=== PATIENT | male | born 1945 | race Caucasian/White ===

== ENCOUNTER 2019-05-13 07:32 | Emergency (ER) | payer MEDICARE, BC ==
[2019-05-13] MEDS ORDERED: Sodium Chloride 0.9% 10 ML Syringe FLUSH PRN (07:55)
[2019-05-13] MEDS ORDERED: Etomidate 2 MG/ML 10 ML SDV ONE (08:00)
[2019-05-13] MEDS ORDERED: Sodium Bicarbonate 8.4% 50 MEQ/50 ML Syringe ONE (08:00)
[2019-05-13] MEDS ORDERED: Midazolam 1 MG/ML 2 ML SDV ONE ×2 (08:00→09:06)
[2019-05-13] MEDS ORDERED: Succinylcholine 200 MG/10 ML MDV ONE ×2 (08:00→08:30)
[2019-05-13] MEDS ORDERED: Rocuronium 50 MG/5 ML Vial ONE ×2 (08:00→08:30)
[2019-05-13] MEDS ORDERED: SODIUM CHLORIDE 0.9% IV ONE (08:05)
[2019-05-13] MEDS ORDERED: PHENYTOIN IV ONE (08:05)
[2019-05-13] MEDS ORDERED: Sodium Chloride 0.9% 1,000 ML IV ONE (08:15)
--- NOTE | 2019-05-13 08:15 | CT ---
[id number] CT/CT Head Stroke Protocol EXAM: CT Head Stroke Protocol CLINICAL DATA: STROKE COMPARISON STUDY: 03/27/2018. FINDINGS: No intracranial hemorrhage, extra-axial fluid collection, mass, or acute ischemia. Generalized parenchymal atrophy with scattered areas of nonspecific white matter disease, commonly seen as sequela of chronic microvascular ischemia. Soft tissues are unremarkable. Paranasal sinuses and mastoid air cells are clear. IMPRESSION: No acute intracranial findings. Fidencio Rangel DO 05/13/19 0814 Thank you for allowing us to participate in the care of your patient.
[2019-05-13 08:25] LABS: BARBITURATE SCREEN,URINE NEGATIVE (NEGATIVE); BENZODIAZEPINES SCREEN,URINE NEGATIVE (NEGATIVE); EDDP,URINE SCREEN NEGATIVE (NEGATIVE); METHAMPHETAMINE SCREEN, URINE NEGATIVE (NEGATIVE); TCA SCREEN,URINE NEGATIVE (NEGATIVE); THC SCREEN,URINE 50 NG/ML NEGATIVE (NEGATIVE)
[2019-05-13] MEDS ORDERED: Etomidate 2 MG/ML 10 ML SDV IVPUSH ONE (08:30)
[2019-05-13] MEDS ORDERED: Succinylcholine 200 MG/10 ML MDV IV ONE (08:30)
[2019-05-13 08:33] LABS: CHLORIDE,CL 100 mmol/L (98-107); SODIUM,NA 143 mmol/L (136-145)
[2019-05-13] MEDS ORDERED: Rocuronium 50 MG/5 ML Vial IV ONE (08:40)
[2019-05-13] MEDS ORDERED: Sodium Bicarbonate 8.4% 50 MEQ/50 ML Syringe IVPUSH ONE ×2 (08:45→08:46)
[2019-05-13 08:47] LABS: ACETAMINOPHEN 0 ug/ml (10-30)
[2019-05-13] MEDS ORDERED: Sodium Bicarbonate 50 MEQ in Sodium Chloride 0.9% 1,000 ML IV ONE ×4 (08:55)
[2019-05-13] MEDS ORDERED: Midazolam 1 MG/ML 2 ML SDV IVPUSH ONE (09:05)
--- NOTE | 2019-05-13 09:15 | CR ---
[id number] RAD/RAD Chest PA or AP 1V EXAM: RAD Chest PA or AP 1V INDICATION: POST INTUBATION COMPARISON: None. DISCUSSION: Endotracheal tube projects over the superior trachea at the level of the clavicle heads. No visible pneumothorax. Lungs appear clear. Marked gaseous distention of bowel loops in the upper abdomen, partially visualized and nonspecific in etiology. Additionally, there is an abnormal appearance of the left hemidiaphragm. Findings are possibly secondary to chronic marked gaseous distention of the colon which was seen on a CT from March 27, 2018. If there is abdominal pain or suspicion for abdominal pathology, CT of the abdomen/pelvis with intravenous contrast is recommended for further evaluation. IMPRESSION: Endotracheal tube has been placed with tip in the superior trachea at the level of the clavicle heads. Chest is otherwise unremarkable. Upper abdomen as described above with recommendations, as clinically warranted. Results relayed to Dr. Vidal at time of dictation. Ashvin Ron MD 05/13/19 0914 Thank you for allowing us to participate in the care of your patient.
--- NOTE | 2019-05-13 09:27 | EDM.PDOC ---
ED HPI GENERAL MEDICAL PROBLEM - General Chief Complaint: Abdominal Pain Stated Complaint: STROKE Time Seen by Provider: 05/13/19 07:38 Source of Information: Reports: EMS, Family History Limitations: Reports: Altered Mental Status - History of Present Illness INITIAL COMMENTS - FREE TEXT/NARRATIVE: Pt presents unresponsive by ems. Last known well time Last evening 05/12/19, did hear pt moving around about [id number]. Found pt unresponsive and called 911. Pt with hx of HTN, anxiety, hyperlipidemia. Pt with one seizure enroute, did have another seizure upon arrival. Onset: Today - Related Data Allergies Allergy/AdvReac Type Severity Reaction Status Date / Time No Known Drug Allergies Allergy Other Verified 05/08/14 17:10 Home Meds: Home Meds . [Unable to Verify Home Med List] 03/21/14 [History] ED ROS GENERAL - Review of Systems Review Of Systems: Unable To Obtain (Pt unresponsive upon arrival) - Physical Exam Exam: See Below Text/Narrative:: Pt presents unresponsive by ems. On O2 15 lpm via NRB, IV inplace, PT with one seizure enroute, upon arrival pt with seizure given valium 5 mg IVP, Pt taken to Ct with RN in attendance. PT to trauma room post scan. IV, forde, ekg in place, no ectopy noted on ekg, pt with ST labs obtained, Pt unable to protect his airway, decision was made to RSI pt, vitals take / preoxygenate pt, pt given etomidate and succinylcholine, 7.5 ett placed w/o difficulty 24 cm at the lip. et co2 at 50 with 100% spo2, LS in all vargas with no epigastric sounds, equil chest rise, post intubation x ray taken, noted in trach. PH at 7.1 pt started on bicarb drip, discussed with [facility] pt transfored to [place] [facility] for further evaluation and treatment Dr. Cortez accepting. Exam Limited By: Altered Mental Status General Appearance: Other (unresponsive ) Throat/Mouth: Normal Lips, Normal Oropharynx Head Exam: Atraumatic, Normocephalic Neck: Normal Inspection, Supple Respiratory/Chest: No Respiratory Distress, Normal Breath Sounds Cardiovascular: Tachycardia GI/Abdominal: Normal Bowel Sounds Course - Orders/Labs/Meds Orders: Active Orders 24 hr Category Date Time Status Forde Catheter Insertion [Insert Urinary Catheter] [OM. Care 05/13/19 08:00 Ordered PC] Q24H Supplemental O2 [Oxygen Therapy, ED] [RC] ASDIRECTED Care 05/13/19 07:59 Active Urinary Catheter Assessment [RC] ASDIRECTED Care 05/13/19 07:56 Active LACTIC ACID [CHEM] Stat Lab 05/13/19 08:59 Ordered Sodium Bicarbonate [Sodium Bicarbonate 8.4%] 50 meq Med 05/13/19 08:55 Active Sodium Chloride 0.9% [Normal Saline] 1,000 ml IV ONETIME Sodium Chloride 0.9% [Saline Flush] Med 05/13/19 07:55 Active 10 ml FLUSH ASDIRECTED PRN Peripheral IV Insertion Adult [OM.PC] Routine Oth 05/13/19 07:55 Ordered Medication Orders Sodium Bicarbonate 50 meq/ (Sodium Chloride) 1,050 mls @ 999 mls/hr IV ONETIME ONE Stop: 05/13/19 09:58 Sodium Chloride (Saline Flush) 10 ml FLUSH ASDIRECTED PRN PRN Reason: Keep Vein Open Labs: Laboratory Tests 05/13/19 05/13/19 05/13/19 Range/Units 07:56 07:56 08:05 WBC 10.6 H (4.0-10.0) x10^3/uL RBC 5.38 (4.5-6.0) x10^6/uL Hgb 17.0 D (14.0-18.0) g/dL Hct 50.5 (40.0-52.0) % MCV 93.9 H (78.0-93.0) fL MCH 31.6 (26.0-32.0) pg MCHC 33.7 (32.0-36.0) g/dL RDW Coeff of Walter 15.8 H (10.0-15.0) % Plt Count 176 (130-400) x10^3/uL Add Manual Diff Yes Neutrophils % (Manual) 62 (50-80) % Band Neutrophils % 2 (0-6) % Lymphocytes % (Manual) 27 (25-50) % Monocytes % (Manual) 6 (2-11) % Eosinophils % (Manual) 1 (0-4) % Metamyelocytes % 2 H (0) % Platelet Estimate Adequate Giant Platelets Few H POC ABG pH (7.35-7.45) POC ABG pCO2 (35-45) mmHG POC ABG pO2 (80-105) mmHG POC ABG HCO3 (22-26) mmol/L POC ABG Total CO2 (23-27) mmol/L POC ABG O2 Sat (95-98) % POC ABG Base Excess (-2-3) mmol/L POC FiO2 Sodium 143 (136-145) mmol/L Potassium 4.0 (3.5-5.1) mmol/L Chloride 100 (98-107) mmol/L Carbon Dioxide 29 (21-32) mmol/L Anion Gap 18.0 (10-20) mmol/L BUN 12 (7-18) mg/dL Creatinine 1.1 (0.70-1.30) mg/dL Est Cr Clr Drug Dosing TNP Estimated GFR (MDRD) > 60 Glucose 186 H (74-106) mg/dL Calcium 10.0 D (8.5-10.1) mg/dL Corrected Calcium 10.16 H (8.5-10.1) mg/dL Total Bilirubin 1.2 H (0.2-1.0) mg/dL AST 23 (15-37) U/L ALT 13 L (16-63) U/L Alkaline Phosphatase 77 (46-116) U/L Troponin I < 0.017 (<=0.056) ng/mL Total Protein 7.1 (6.4-8.2) g/dL Albumin 3.8 (3.4-5.0) g/dL Globulin 3.3 Albumin/Globulin Ratio 1.15 POC Result Comm Urine Color Dark yellow H (YELLOW) Urine Appearance Slightly cloudy H (CLEAR) Urine pH 5.5 (5.0-8.0) Ur Specific [place] 1.020 Urine Protein 30 H (NEGATIVE) mg/dL Urine Glucose (UA) Negative (NEGATIVE) mg/dL Urine Ketones Negative (NEGATIVE) mg/dL Urine Occult Blood Negative (NEGATIVE) Urine Nitrite Negative (NEGATIVE) Urine Bilirubin Moderate H (NEGATIVE) Urine Urobilinogen 2.0 H (0.2) EU/dL Ur Leukocyte Esterase Negative (NEGATIVE) Urine RBC 0-5 (NOT SEEN) /HPF Urine WBC 0-5 (NOT SEEN) /HPF Ur Squamous Epith Cells Rare (NEGATIVE) /HPF Amorphous Sediment Occasional Urine Bacteria Not seen (NEGATIVE) /HPF Urine Mucus Few H (NEGATIVE) /LPF Urine Opiates Screen (NEAGTIVE) Ur Buprenorphine Scrn (NEGATIVE) Ur Oxycodone Screen (NEGATIVE) Ur EDDP (Meth Metab) (NEGATIVE) Urine Methadone Screen (NEGATIVE) Acetaminophen 0 L (10-30) ug/ml Ur Barbiturates Screen (NEGATIVE) Ur Tricyclics Screen (NEGATIVE) Ur Phencyclidine Scrn (NEGATIVE) Ur Amphetamine Screen (NEGATIVE) U Methamphetamines Scrn (NEGATIVE) Urine MDMA Screen (NEGATIVE) U Benzodiazepines Scrn (NEGATIVE) U Cocaine Metab Screen (NEGATIVE) U Marijuana (THC) Screen (NEGATIVE) 05/13/19 05/13/19 Range/Units 08:05 08:11 WBC (4.0-10.0) x10^3/uL RBC (4.5-6.0) x10^6/uL Hgb (14.0-18.0) g/dL Hct (40.0-52.0) % MCV (78.0-93.0) fL MCH (26.0-32.0) pg MCHC (32.0-36.0) g/dL RDW Coeff of Walter (10.0-15.0) % Plt Count (130-400) x10^3/uL Add Manual Diff Neutrophils % (Manual) (50-80) % Band Neutrophils % (0-6) % Lymphocytes % (Manual) (25-50) % Monocytes % (Manual) (2-11) % Eosinophils % (Manual) (0-4) % Metamyelocytes % (0) % Platelet Estimate Giant Platelets POC ABG pH 7.114 L* (7.35-7.45) POC ABG pCO2 96 H* (35-45) mmHG POC ABG pO2 166 H (80-105) mmHG POC ABG HCO3 31 H (22-26) mmol/L POC ABG Total CO2 34 H (23-27) mmol/L POC ABG O2 Sat 99 H (95-98) % POC ABG Base Excess 1 (-2-3) mmol/L POC FiO2 0.80 Sodium (136-145) mmol/L Potassium (3.5-5.1) mmol/L Chloride (98-107) mmol/L Carbon Dioxide (21-32) mmol/L Anion Gap (10-20) mmol/L BUN (7-18) mg/dL Creatinine (0.70-1.30) mg/dL Est Cr Clr Drug Dosing Estimated GFR (MDRD) Glucose (74-106) mg/dL Calcium (8.5-10.1) mg/dL Corrected Calcium (8.5-10.1) mg/dL Total Bilirubin (0.2-1.0) mg/dL AST (15-37) U/L ALT (16-63) U/L Alkaline Phosphatase (46-116) U/L Troponin I (<=0.056) ng/mL Total Protein (6.4-8.2) g/dL Albumin (3.4-5.0) g/dL Globulin Albumin/Globulin Ratio POC Result Comm Called critical res Urine Color (YELLOW) Urine Appearance (CLEAR) Urine pH (5.0-8.0) Ur Specific [place] Urine Protein (NEGATIVE) mg/dL Urine Glucose (UA) (NEGATIVE) mg/dL Urine Ketones (NEGATIVE) mg/dL Urine Occult Blood (NEGATIVE) Urine Nitrite (NEGATIVE) Urine Bilirubin (NEGATIVE) Urine Urobilinogen (0.2) EU/dL Ur Leukocyte Esterase (NEGATIVE) Urine RBC (NOT SEEN) /HPF Urine WBC (NOT SEEN) /HPF Ur Squamous Epith Cells (NEGATIVE) /HPF Amorphous Sediment Urine Bacteria (NEGATIVE) /HPF Urine Mucus (NEGATIVE) /LPF Urine Opiates Screen Negative (NEAGTIVE) Ur Buprenorphine Scrn Negative (NEGATIVE) Ur Oxycodone Screen Negative (NEGATIVE) Ur EDDP (Meth Metab) Negative (NEGATIVE) Urine Methadone Screen Negative (NEGATIVE) Acetaminophen (10-30) ug/ml Ur Barbiturates Screen Negative (NEGATIVE) Ur Tricyclics Screen Negative (NEGATIVE) Ur Phencyclidine Scrn Negative (NEGATIVE) Ur Amphetamine Screen Negative (NEGATIVE) U Methamphetamines Scrn Negative (NEGATIVE) Urine MDMA Screen Negative (NEGATIVE) U Benzodiazepines Scrn Negative (NEGATIVE) U Cocaine Metab Screen Negative (NEGATIVE) U Marijuana (THC) Screen Negative (NEGATIVE) Meds: Medications Generic Name Dose Route Start Last Admin Trade Name Freq PRN Reason Stop Dose Admin Sodium Bicarbonate 50 meq/ 1,050 mls @ 999 mls/hr 05/13/19 08:55 Sodium Chloride IV 05/13/19 09:58 ONETIME ONE Sodium Chloride 10 ml 05/13/19 07:55 Saline Flush FLUSH ASDIRECTED PRN Keep Vein Open Discontinued Medications Generic Name Dose Route Start Last Admin Trade Name Freq PRN Reason Stop Dose Admin Diazepam Confirm 05/13/19 07:41 Valium Administered 05/13/19 07:42 Dose 10 mg .ROUTE .STK-MED ONE Diazepam 5 mg 05/13/19 08:11 Valium IVPUSH 05/13/19 08:12 STAT ONE Diazepam 5 mg 05/13/19 08:11 Valium IVPUSH 05/13/19 08:12 STAT ONE Phenytoin Sodium 550 mg/ 111 mls @ 300 mls/hr 05/13/19 08:05 05/13/19 08:20 Sodium Chloride IV 05/13/19 08:28 300 mls/hr ONETIME ONE Administration Midazolam HCl Confirm 05/13/19 09:06 Versed 1 Mg/Ml Administered 05/13/19 09:07 Dose 6 mg .ROUTE .STK-MED ONE Rocuronium Sasabe Confirm 05/13/19 08:30 Zemuron Administered 05/13/19 08:31 Dose 50 mg .ROUTE .STK-MED ONE Succinylcholine Chloride Confirm 05/13/19 08:30 Quelicin Administered 05/13/19 08:31 Dose 200 mg .ROUTE .STK-MED ONE Departure - Departure Time of Disposition: 09:20 Disposition: DC/Tfer to Acute Hospital 02 Condition: Serious Clinical Impression: Unresponsive, Seizure, Acidosis - Discharge Information *PRESCRIPTION DRUG MONITORING PROGRAM REVIEWED*: Not Applicable *COPY OF PRESCRIPTION DRUG MONITORING REPORT IN PATIENT TOMAS: Not Applicable Referrals: Maddie Tomlin MD [Primary Care Provider] - - My Orders Last 24 Hours: My Active Orders 05/13/19 07:55 Sodium Chloride 0.9% [Saline Flush] 10 ml FLUSH ASDIRECTED PRN Peripheral IV Insertion Adult [OM.PC] Routine 05/13/19 07:56 Urinary Catheter Assessment [RC] ASDIRECTED 05/13/19 07:59 Supplemental O2 [Oxygen Therapy, ED] [RC] ASDIRECTED 05/13/19 08:00 Forde Catheter Insertion [Insert Urinary Catheter] [OM.PC] Q24H 05/13/19 08:55 Sodium Bicarbonate [Sodium Bicarbonate 8.4%] 50 meq Sodium Chloride 0.9% [ Normal Saline] 1,000 ml IV ONETIME 05/13/19 08:59 LACTIC ACID [CHEM] Stat - Assessment/Plan Last 24 Hours: My Active Orders 05/13/19 07:55 Sodium Chloride 0.9% [Saline Flush] 10 ml FLUSH ASDIRECTED PRN Peripheral IV Insertion Adult [OM.PC] Routine 05/13/19 07:56 Urinary Catheter Assessment [RC] ASDIRECTED 05/13/19 07:59 Supplemental O2 [Oxygen Therapy, ED] [RC] ASDIRECTED 05/13/19 08:00 Forde Catheter Insertion [Insert Urinary Catheter] [OM.PC] Q24H 05/13/19 08:55 Sodium Bicarbonate [Sodium Bicarbonate 8.4%] 50 meq Sodium Chloride 0.9% [ Normal Saline] 1,000 ml IV ONETIME 05/13/19 08:59 LACTIC ACID [CHEM] Stat
== END 2019-05-13 09:20 | disposition short-term general hospital (02) ==
LOC: VM.ED 07:32
DX: R56.9 Unspecified convulsions (principal); R40.0 Somnolence; E87.2 Acidosis; I10 Essential (primary) hypertension
CPT/HCPCS: 31500; 36415; 36600; 51702; 70450; 71045; 80053; 80305; 81001; 82803; 83605; 84484; 85025; 93005; 96365; 96367; 96375; 96376; 99291; 99292; G0480; J1165; J7050; 99283-GF; J0330; J2250; J3360; J3490; J7030